=== PATIENT | male | born 1990 | race Hispanic/Latino ===

== ENCOUNTER 2020-04-15 11:02 | Emergency (ER) | payer SELFPAY ==
[2020-04-15 11:55] LABS: Absolute Lymphocytes (CBC) 0.4 K/uL (0.7-4.9); Basophils % 0.9 % (0-1.3); Hematocrit 40.4 % (39.6-49.0); Lymphocytes % 8.1 % (15.3-44.8); MPV 8.8 fL (7.6-11.3); RBC Red Blood Cell Count 4.71 M/uL (4.33-5.43)
[2020-04-15] MEDS ORDERED: FAMOTIDINE 20 MG/2 ML VIAL IV ONE (12:03)
[2020-04-15] MEDS ORDERED: NA CHLORIDE 0.9% 1,000 ML ONE (12:03)
[2020-04-15 12:23] LABS: ALT/SGPT 47 U/L (12-78); AST/SGOT 43 U/L (15-37); Albumin 4.2 g/dL (3.4-5.0); Alkaline Phosphatase 147 U/L (45-117); BUN Blood Urea Nitrogen 10 mg/dL (7-18); Bicarbonate 27 mmol/L (21-32); Bilirubin Direct 0.4 mg/dL (0-0.2); Bilirubin Total 1.7 mg/dL (0.2-1.0); Glucose Level 94 mg/dL (74-106); Lipase 117 U/L (73-393); Potassium 4.1 mmol/L (3.5-5.1); Protein, Total 7.8 g/dL (6.4-8.2); Sodium Level 140 mmol/L (136-145); Troponin (Emerg Dept Use Only) < 0.02 ng/mL (0.0-0.045)
--- NOTE | 2020-04-15 12:34 | RAD REPORT ---
EXAM DESCRIPTION: Donna Single View04/15/2020 12:22 pm CLINICAL HISTORY: Chest pain COMPARISON: none FINDINGS: The lungs appear clear of acute infiltrate. The heart is normal size IMPRESSION: No acute abnormalities displayed
[2020-04-15] MEDS ORDERED: DIAZEPAM 10 MG/2 ML INJ SYRINGE ONE (13:09)
--- NOTE | 2020-04-15 16:39 | EDPHYS ---
Physician Documentation [facility] Name: Messi Pham Age: 30 yrs Sex: Male : 1990 Arrival Date: 04/15/2020 Time: 11:05 Bed 19 Private MD: ED Physician Ervin White HPI: 04/15 11:27 This 30 yrs old Male presents to ER via Ambulatory with complaints of Chest snw Pain, Neck Pain, >24Hrs Old. 11:27 Onset: The symptoms/episode began/occurred gradually, 4 day(s) ago, and became snw persistent. Associated signs and symptoms: Pertinent positives: chest pain, fever. The patient has not experienced similar symptoms in the past. The patient has not recently seen a physician. worked out Monday. Historical: - Allergies: 11:10 No Known Allergies; aa5 - Home Meds: 11:10 None [Active]; aa5 - PMHx: 11:10 None; aa5 - PSHx: 11:10 None; aa5 - Immunization history:: Adult Immunizations unknown. - Social history:: Smoking status: Patient reports the use of cigarette tobacco products, denies chronic smoking, but will smoke occasionally. ROS: 11:26 Eyes: Negative for injury, pain, redness, and discharge, ENT: Negative for injury, snw pain, and discharge, Cardiovascular: Negative for chest pain, palpitations, and edema. 11:26 Respiratory: Negative for shortness of breath, cough, wheezing, and pleuritic chest pain, Abdomen/GI: Negative for abdominal pain, nausea, vomiting, diarrhea, and constipation, Back: Negative for injury and pain, : Negative for injury, bleeding, discharge, and swelling, MS/Extremity: Negative for injury and deformity, Skin: Negative for injury, rash, and discoloration, Neuro: Negative for headache, weakness, numbness, tingling, and seizure, Psych: Negative for depression, anxiety, suicide ideation, homicidal ideation, and hallucinations. 11:26 Constitutional: Positive for body aches, fever, malaise. 11:26 Cardiovascular: Positive for chest pain, of the left clavicle and anterior aspect of left upper chest and right lateral neck. Exam: 11:26 Constitutional: This is a well developed, well nourished patient who is awake, alert, snw and in no acute distress. Head/Face: Normocephalic, atraumatic. Eyes: Pupils equal round and reactive to light, extra-ocular motions intact. Lids and lashes normal. Conjunctiva and sclera are non-icteric and not injected. Cornea within normal limits. Periorbital areas with no swelling, redness, or edema. ENT: Nares patent. No nasal discharge, no septal abnormalities noted. Tympanic membranes are normal and external auditory canals are clear. Oropharynx with no redness, swelling, or masses, exudates, or evidence of obstruction, uvula midline. Mucous membranes moist. Neck: Trachea midline, no thyromegaly or masses palpated, and no cervical lymphadenopathy. Supple, full range of motion without nuchal rigidity, or vertebral point tenderness. No Meningismus. Chest/axilla: Normal chest wall appearance and motion. Nontender with no deformity. No lesions are appreciated. Cardiovascular: Regular rate and rhythm with a normal S1 and S2. No gallops, murmurs, or rubs. Normal PMI, no JVD. No pulse deficits. Respiratory: Lungs have equal breath sounds bilaterally, clear to auscultation and percussion. No rales, rhonchi or wheezes noted. No increased work of breathing, no retractions or nasal flaring. Abdomen/GI: Soft, non-tender, with normal bowel sounds. No distension or tympany. No guarding or rebound. No evidence of tenderness throughout. Back: No spinal tenderness. No costovertebral tenderness. Full range of motion. Skin: Warm, dry with normal turgor. Normal color with no rashes, no lesions, and no evidence of cellulitis. MS/ Extremity: Pulses equal, no cyanosis. Neurovascular intact. Full, normal range of motion. Neuro: Awake and alert, GCS 15, oriented to person, place, time, and situation. Cranial nerves II-XII grossly intact. Motor strength 5/5 in all extremities. Sensory grossly intact. Cerebellar exam normal. Normal gait. Psych: Awake, alert, with orientation to person, place and time. Behavior, mood, and affect are within normal limits. Vital Signs: 11:11 BP 138 / 83; Pulse 98; Resp 18 S; Temp 99.5(O); Pulse Ox 100% on R/A; Weight 72.57 kg aa5 (R); Height 5 ft. 6 in. (167.64 cm) (R); Pain 7/10; 11:11 Body Mass Index 25.82 (72.57 kg, 167.64 cm) aa5 MDM: 11:15 Patient medically screened. snw 16:39 Data reviewed: vital signs, nurses notes. Data interpreted: Pulse oximetry: on room air snw is 100 %. Interpretation: normal. Counseling: I had a detailed discussion with the patient and/or guardian regarding: the historical points, exam findings, and any diagnostic results supporting the discharge/admit diagnosis, the presence of at least one elevated blood pressure reading (>120/80) during this emergency department visit, lab results, radiology results, the need for outpatient follow up, to return to the emergency department if symptoms worsen or persist or if there are any questions or concerns that arise at home. Special discussion: Based on the patient's history, exam, and Dx evaluation, there is no indication for emergent intervention or inpatient Tx. It is understood by the patient/guardian that if the Sx's persist or worsen they need to return immediately for re-evaluation. I have referred the patient to see his PCP for further evaluation of high blood pressure. Based on the history and exam findings, there is no indication for further emergent testing or inpatient evaluation. 04/15 11:15 Order name: CBC with Diff; Complete Time: 12:20 snw 04/15 11:15 Order name: LFT's; Complete Time: 12:48 snw 04/15 11:15 Order name: Lipase; Complete Time: 12:48 snw 04/15 11:15 Order name: Troponin (emerg Dept Use Only); Complete Time: 12:48 snw 04/15 11:15 Order name: Chem 7; Complete Time: 12:48 snw 04/15 11:26 Order name: Flu; Complete Time: 13:43 snw 04/15 11:16 Order name: Chest Single View XRAY; Complete Time: 12:48 snw 04/15 11:26 Order name: Strep; Complete Time: 13:43 snw 04/15 11:26 Order name: COVID-19 snw 04/15 11:28 Order name: CPK snw 04/15 11:29 Order name: Creatine Phosphokinase; Complete Time: 12:20 EDMS 04/15 13:38 Order name: Throat Culture EDMS 04/15 14:18 Order name: Troponin (emerg Dept Use Only); Complete Time: 16:17 snw 04/15 11:15 Order name: EKG; Complete Time: 11:15 snw 04/15 11:15 Order name: EKG - Nurse/Tech; Complete Time: 11:48 snw 04/15 14:18 Order name: EKG; Complete Time: 14:18 snw EC:40 Rate is 81 beats/min. Rhythm is regular. QRS [place] is Normal. ID interval is normal. QRS snw interval is normal. T waves are Normal. Clinical impression: Normal ECG. 16:39 Rate is 96 beats/min. Rhythm is regular. QRS [place] is Normal. ID interval is normal. QRS snw interval is normal. QT interval is normal. No Q waves. T waves are Normal. No ST changes noted. Clinical impression: Normal ECG. Administered Medications: 11:54 Drug: Pepcid 20 mg Route: IVP; Site: right antecubital; iw 11:54 Drug: NS 0.9% 1000 ml Route: IV; Rate: 125 ml/hr; Site: right antecubital; iw 12:40 Drug: Valium 2 mg Route: IVP; Site: right antecubital; iw Disposition: 17:31 Co-signature as Attending Physician, Ervin White MD I agree with the assessment and kdr plan of care. Disposition: 04/15/20 16:38 Discharged to Home. Impression: Chest pain, unspecified, Muscle spasm. - Condition is Stable. - Discharge Instructions: Nonspecific Chest Pain, Hypertension, How to Take Your Blood Pressure, [id number], Aspirin and Your Heart, Form - Blood Pressure Record Sheet. - Prescriptions for orphenadrine citrate 100 mg Oral Tablet Sustained Release - take 1 tablet by ORAL route 2 times per day As needed; 20 tablet. - Work release form, Medication Reconciliation Form, Thank You Letter, Antibiotic Education, Prescription Opioid Use form. - Follow up: Emergency Department; When: As needed; Reason: Worsening of condition. Follow up: Private Physician; When: 2 - 3 days; Reason: Recheck today's complaints, Continuance of care, Re-evaluation by your physician. Signatures: Dispatcher [employer] [facility] Ervin White MD MD kdr Waters, Shelly, YARN INSPECTOR-C YARN INSPECTOR-Csnw Sheila Peña, RN RN iw Efra Miller em1 Sarah Mcfarlane, RN RN aa5 Corrections: (The following items were deleted from the chart) 17:28 16:38 04/15/2020 16:38 Discharged to Home. Impression: Chest pain, unspecified; Muscle em1 spasm. Condition is Stable. Forms are Medication Reconciliation Form, Thank You Letter, Antibiotic Education, Prescription Opioid Use. Follow up: Emergency Department; When: As needed; Reason: Worsening of condition. Follow up: Private Physician; When: 2 - 3 days; Reason: Recheck today's complaints, Continuance of care, Re-evaluation by your physician. snw
--- NOTE | 2020-04-15 16:39 | ER ---
Nurse's Notes [facility] Name: Messi Pham Age: 30 yrs Sex: Male : 1990 Arrival Date: 04/15/2020 Time: 11:05 Bed 19 Private MD: Diagnosis: Chest pain, unspecified;Muscle spasm Presentation: 04/15 11:08 Chief complaint: Patient states: pain to right side of neck and left sided chest pain x aa5 3-4 days ago. Pt also reports "sweating at night like a fever".Pt denies cough, denies nausea, denies vomiting, denies diarrhea. Pt denies sore throat. Coronavirus screen: At this time, the client does not indicate any symptoms associated with coronavirus-19. Ebola Screen: Patient negative for fever greater than or equal to 101.5 degrees Fahrenheit, and additional compatible Ebola Virus Disease symptoms. Initial Sepsis Screen: Does the patient meet any 2 criteria? No. Patient's initial sepsis screen is negative. Does the patient have a suspected source of infection? No. Patient's initial sepsis screen is negative. Risk Assessment: Do you want to hurt yourself or someone else? Patient reports no desire to harm self or others. Onset of symptoms was March 2020. 11:08 Acuity: ISRA 3 aa5 11:08 Method Of Arrival: Ambulatory aa5 Historical: - Allergies: 11:10 No Known Allergies; aa5 - Home Meds: 11:10 None [Active]; aa5 - PMHx: 11:10 None; aa5 - PSHx: 11:10 None; aa5 - Immunization history:: Adult Immunizations unknown. - Social history:: Smoking status: Patient reports the use of cigarette tobacco products, denies chronic smoking, but will smoke occasionally. Screenin:56 Abuse screen: Denies threats or abuse. Denies injuries from another. Nutritional iw screening: No deficits noted. Tuberculosis screening: No symptoms or risk factors identified. Fall Risk None identified. Assessment: 11:55 General: Appears in no apparent distress. Behavior is calm, cooperative. Pain: iw Complains of pain in anterior aspect of left upper chest and left breast Pain began 2-3 days ago. Is continuous. Neuro: Level of Consciousness is awake, alert, obeys commands, Oriented to person, place, time, situation, Practical Nurse are Moves all extremities. Full function. Cardiovascular: Capillary refill < 3 seconds in bilateral fingers Patient's skin is warm and dry. Respiratory: Respiratory effort is even, unlabored, Respiratory pattern is regular. GI: Abdomen is non-distended. Derm: Skin is intact, is healthy with good turgor. Musculoskeletal: Range of motion: intact in all extremities. 13:14 Reassessment: Patient appears in no apparent distress at this time. Patient and/or iw family updated on plan of care and expected duration. Pain level reassessed. Patient is alert, oriented x 3, equal unlabored respirations, skin warm/dry/pink. Vital Signs: 11:11 BP 138 / 83; Pulse 98; Resp 18 S; Temp 99.5(O); Pulse Ox 100% on R/A; Weight 72.57 kg aa5 (R); Height 5 ft. 6 in. (167.64 cm) (R); Pain 7/10; 11:11 Body Mass Index 25.82 (72.57 kg, 167.64 cm) aa5 ED Course: 11:05 Patient arrived in ED. ag5 11:08 Arm band placed on. aa5 11:10 Triage completed. aa5 11:13 Malathi Kaur [facility]-C [facility]. snw 11:13 Ervin White MD is Attending Physician. snw 11:22 Sheila Peña, RN is Primary Nurse. iw 11:43 Inserted saline lock: 20 gauge in right antecubital area, using aseptic technique. ca1 Blood collected. Patient maintains SpO2 saturation greater than 95% on room air. 11:43 Initial lab(s) drawn, by me, sent to lab. COVID swab sent to lab. Flu and/or RSV swab ca1 sent to lab. Strep swab sent to lab. 11:48 COVID-19 Sent. ca1 11:48 Strep Sent. ca1 11:48 Flu Sent. ca1 12:00 Patient has correct armband on for positive identification. Pulse ox on. NIBP on. iw 12:22 Chest Single View XRAY In Process Unspecified. EDMS 17:27 No provider procedures requiring assistance completed. IV discontinued, intact, iw bleeding controlled, No redness/swelling at site. Pressure dressing applied. Administered Medications: 11:54 Drug: Pepcid 20 mg Route: IVP; Site: right antecubital; iw 11:54 Drug: NS 0.9% 1000 ml Route: IV; Rate: 125 ml/hr; Site: right antecubital; iw 12:40 Drug: Valium 2 mg Route: IVP; Site: right antecubital; iw Outcome: 16:38 Discharge ordered by . jana 17:27 Discharged to home ambulatory. iw 17:27 Condition: good 17:27 Discharge instructions given to patient, Instructed on discharge instructions, follow up and referral plans. medication usage, Demonstrated understanding of instructions, follow-up care, medications, Prescriptions given X 1. 17:28 Patient left the ED. em1 Addendum: 04/16/2020 17:37 Addendum: COVID-19 Result: Negative result given to RN to notify pt. Notified pt of i w negative COVID 19 swab results. Pt advised that even with a negative test result they should remain in isolation until symptom free for 3 days without medication. Pt also advised to return to the ED for worsening symptoms. Signatures: Dispatcher [employer] EDMS Malathi Kaur, VISITOR SERVICES REPRESENTATIVE-C VISITOR SERVICES REPRESENTATIVE-Csnw Sheila Peña, RN Efra Callahan em1 Sarah Mcfarlane RN JEOVANY aa5 Amanda Romero RN Rusty Horn5
[2020-04-15 17:34] VITALS: BP 138/83; TEMP 99.5; O2SAT 100
[2020-04-15] MEDS ORDERED: ASPIRIN 81 MG CHEWABLE TABLET ONE (17:34)
[2020-04-15] MEDS ORDERED: ACETAMINOPHEN 500 MG TAB ONE (17:34)
--- NOTE | 2020-04-17 16:14 | EKG ---
Test Date: 2020-04-15 Test Time: 11:34:28 Associate Veterinarian: JANICE MEASUREMENT RESULTS: Intervals: Rate: 81 [place]: 124 QRSD: 70 QT: 340 QTc: 394 [place]: P: 60 [place]: 124 QRS: 67 T: 31 INTERPRETIVE STATEMENTS: Normal sinus rhythm Normal ECG No previous ECG available for comparison Electronically Signed On 04-17-20 16:09:59 CHOCOLATE DIPPER by Balbir Mitchell
--- NOTE | 2020-04-17 16:14 | EKG ---
Test Date: 2020-04-15 Test Time: 16:28:18 Licensed Physical Therapist: JANICE MEASUREMENT RESULTS: Intervals: Rate: 96 [place]: 120 QRSD: 76 QT: 316 QTc: 399 [place]: P: 57 [place]: 120 QRS: 58 T: 26 INTERPRETIVE STATEMENTS: Normal sinus rhythm Normal ECG Compared to ECG 04/15/2020 11:34:28 No significant changes Electronically Signed On 04-17-20 16:09:51 FULL STACK SOFTWARE DEVELOPER by Balbir Mitchell
== END 2020-04-15 17:28 | disposition home or self-care (01) ==
LOC: ER 11:02
DX: M62.838 Other muscle spasm (principal); Z20.828 Contact with and (suspected) exposure to other viral communicable diseases; F17.210 Nicotine dependence, cigarettes, uncomplicated
CPT/HCPCS: 36415; 71045; 80048; 80076; 82550; 83690; 84484; 85025; 87070; 87081; 87804; 93005; 96374; 96375; 99284; J3360; J7030; U0002

== ENCOUNTER 2020-04-17 14:24 | Emergency (ER) | payer SELFPAY ==
[2020-04-17 15:45] LABS: Absolute Lymphocytes (CBC) 0.4 K/uL (0.7-4.9); Basophils % 1.4 % (0-1.3); Hematocrit 40.9 % (39.6-49.0); Lymphocytes % 13.9 % (15.3-44.8); MPV 9.4 fL (7.6-11.3); RBC Red Blood Cell Count 4.77 M/uL (4.33-5.43)
[2020-04-17 15:56] LABS: Albumin 3.9 g/dL (3.4-5.0); Bilirubin Direct 0.4 mg/dL (0-0.2); Bilirubin Total 1.6 mg/dL (0.2-1.0); Potassium 3.7 mmol/L (3.5-5.1); Protein, Total 7.7 g/dL (6.4-8.2)
--- NOTE | 2020-04-17 16:15 | RAD REPORT ---
EXAM DESCRIPTION: CT - Stone Protocol - 04/17/2020 4:04 pm CLINICAL HISTORY: ABD PAIN COMPARISON: <Comparisons> TECHNIQUE: Axial 5 mm thick images were obtained without oral or IV contrast. The [id number] span s the entirety of the system including uppermost abdomen and lung bases. All CT scans are performed using dose optimization technique as appropriate and may include automated exposure control or mA/KV adjustment according to patient size. FINDINGS: No hydronephrosis is present and no obstructing ureteral calculi. No suspicious renal mass es. Isodense masses and pyelonephritis are not excluded on a stone protocol CT scan. No significant a drenal finding. Tightly contracted urinary bladder shows no suspicious finding. No prostate gland or seminal vesicle abnormality seen. The liver, spleen and pancreas show no focal abnormalities on noncontrast imaging. Liver and spleen a re upper normal in size. There is fullness of the pancreatic tail. The tissue is homogeneous with no clearly defined mass on a noncontrast examination. No gallbladder or biliary tree abnormality identif ied. Gallstones can be occult on CT imaging. No acute bowel finding identifiable. Patient does have multiple mesenteric lymph nodes in the central abdomen. No direct or indirect evidence for appendicitis. No periappendiceal inflammatory stranding or right lower quadrant focal findings. Small amount of fluid is collecting in the dependent portion of the pelvis. Trace amount of fluid adjacent to the posterior capsule of the spleen. No hernia, mass or bulky lymphadenopathy noted. No free air, pneumatosis or focal inflammatory strand ing. No significant bony abnormality. IMPRESSION: Noncontrast CT abdomen and pelvis imaging shows no free air, acute appendicitis or other surgically emergent finding. Multiple mesenteric lymph nodes are seen in the peritoneal cavity with trace amounts of free fluid al so present. Nonspecific enteritis or mesenteric adenitis would be most likely. Fluid is presumed to b e reactive. No focal abnormality of the solid abdominal viscera or bowel seen. Isodense masses and pyelonephritis are not excluded on stone protocol technique.
[2020-04-17] MEDS ORDERED: NA CHLORIDE 0.9% 1,000 ML ONE (16:21)
[2020-04-17 17:03] LABS: Urine Bacteria <20 /HPF (NONE SEEN); Urine RBC <5 /HPF (NONE SEEN)
--- NOTE | 2020-04-17 17:05 | ER ---
Nurse's Notes [facility] Name: Messi Pham Age: 30 yrs Sex: Male : 1990 Arrival Date: 04/17/2020 Time: 14:26 Bed 8 Private MD: Diagnosis: Abnormal results of liver function studies;Unspecified abdominal pain Presentation: 04/17 14:35 Chief complaint: Patient states: LUQ pain x 3 days. Today, red colored urine in the ca1 morning. 2nd urine was dark. LUQ pain worse when breathing in. Tested negative for Covid 04/15/2020. Coronavirus screen: Client denies travel out of the [place] in the last 14 days. At this time, the client does not indicate any symptoms associated with coronavirus-19. The client reports previous COVID testing was negative. Date of collection: April 15, 2020. Ebola Screen: Patient negative for fever greater than or equal to 101.5 degrees Fahrenheit, and additional compatible Ebola Virus Disease symptoms Patient denies exposure to infectious person. Patient denies travel to an Ebola-affected area in the 21 days before illness onset. No symptoms or risks identified at this time. Initial Sepsis Screen: Does the patient meet any 2 criteria? No. Patient's initial sepsis screen is negative. Does the patient have a suspected source of infection? No. Patient's initial sepsis screen is negative. Risk Assessment: Do you want to hurt yourself or someone else? Patient reports no desire to harm self or others. Onset of symptoms was April 17, 2020. 14:35 Method Of Arrival: Ambulatory ca1 14:35 Acuity: ISRA 3 ca1 Historical: - Allergies: 14:38 No Known Allergies; ca1 - Home Meds: 14:38 None [Active]; ca1 - PMHx: 14:38 None; ca1 - PSHx: 14:38 None; ca1 - Immunization history:: Adult Immunizations up to date, Flu vaccine is not up to date. - Social history:: Smoking status: Patient denies any tobacco usage or history of. Screenin:11 Abuse screen: Denies threats or abuse. Denies injuries from another. Nutritional ph screening: No deficits noted. Tuberculosis screening: No symptoms or risk factors identified. Fall Risk None identified. Assessment: 16:11 General: Appears in no apparent distress. comfortable, slender, well groomed, Behavior ph is calm, cooperative, appropriate for age, Denies fever, feeling ill. Pain: Complains of pain in left lower quadrant. Neuro: Level of Consciousness is awake, alert, obeys commands, Oriented to person, place, time, situation. Cardiovascular: Capillary refill < 3 seconds in bilateral fingers Patient's skin is warm and dry. Respiratory: Airway is patent Respiratory effort is even, unlabored. GI: Abdomen is flat, non-distended, Reports lower abdominal pain, upper abdominal pain. : Urine is dark colored urine. : Reports pain in right flank(s), lower quadrant(s) difficulty urinating. Derm: Skin is intact, is healthy with good turgor, Skin is pink, warm \\T\\ dry. Musculoskeletal: Circulation, motion, and sensation intact. Range of motion: intact in all extremities. 17:15 Reassessment: Patient appears in no apparent distress at this time. Patient and/or ph family updated on plan of care and expected duration. Pain level reassessed. Patient is alert, oriented x 3, equal unlabored respirations, skin warm/dry/pink. Pt states, " I feel like I am running a fever." Oral temp 101.6, ERP notified of vitals, ordered Motrin and a mono test, d/c pending results. Vital Signs: 14:35 BP 117 / 76; Pulse 118; Resp 16 S; Temp 97(TE); Pulse Ox 99% on R/A; Weight 72.57 kg ca1 (R); Height 5 ft. 6 in. (167.64 cm) (R); Pain 9/10; 16:15 BP 119 / 73; Pulse 102; Resp 18; Pulse Ox 99% on R/A; ph 16:47 BP 127 / 80; Pulse 96; Resp 17; Temp 101.6(O); Pulse Ox 100% on R/A; kj1 18:35 BP 118 / 78; Pulse 98; Resp 18; Temp 101.8(O); Pulse Ox 100% on R/A; ph 14:35 Body Mass Index 25.82 (72.57 kg, 167.64 cm) ca1 ED Course: 14:26 Patient arrived in ED. rg4 14:37 Triage completed. ca1 14:38 Arm band placed on right wrist. ca1 15:09 Adali Villanueva FNP-C is [facility]. kb 15:09 Mingo Wright MD is Attending Physician. kb 15:09 Yusra Shore RN is Primary Nurse. ph 16:05 CT Stone Protocol In Process Unspecified. EDMS 16:23 Patient has correct armband on for positive identification. Bed in low position. Call ph light in reach. Side rails up X 1. Pulse ox on. NIBP on. Door closed. Noise minimized. Warm blanket given. 18:43 No provider procedures requiring assistance completed. IV discontinued, intact, ph bleeding controlled, No redness/swelling at site. Pressure dressing applied. Administered Medications: 16:10 Drug: NS 0.9% 1000 ml Route: IV; Rate: 1000 ml; Site: left antecubital; ph 17:43 Follow up: Response: No adverse reaction; IV Status: Completed infusion; IV Intake: ph 1000ml 17:16 CANCELLED (Physician Discretion): Tylenol 1000 mg PO once kb 17:40 Drug: Ibuprofen 600 mg Route: PO; ph 19:04 Follow up: Response: No adverse reaction; Temperature is unchanged ph 19:05 Drug: Tylenol 1000 mg Route: PO; ph 19:05 Follow up: Response: No adverse reaction; Medication administered at discharge. ph Intake: 17:43 IV: 1000ml; Total: 1000ml. ph Outcome: 17:05 Discharge ordered by . kb 19:05 Discharged to home ambulatory. ph 19:05 Condition: good 19:05 Discharge instructions given to patient, Instructed on discharge instructions, follow up and referral plans. Demonstrated understanding of instructions, follow-up care. 19:11 Patient left the ED. ph Signatures: Dispatcher [employer] EDCO Adali Villanueva FNP-C REHAB AIDE-Ckb Yusra Shore RN RN ph Erica Guo rg4 Amanda Romero RN RN [facility] Chandni Villanueva kj1 Corrections: (The following items were deleted from the chart) 17:46 17:15 Reassessment: Patient appears in no apparent distress at this time. Patient ph and/or family updated on plan of care and expected duration. Pain level reassessed. Patient is alert, oriented x 3, equal unlabored respirations, skin warm/dry/pink. Pt states, " I feel like I am running a fever." Oral temp 101.6, ERP notified of vitals ph
--- NOTE | 2020-04-17 17:05 | EDPHYS ---
Physician Documentation [facility] Name: Messi Pham Age: 30 yrs Sex: Male : 1990 Arrival Date: 04/17/2020 Time: 14:26 Bed 8 Private MD: ED Physician Mingo Wright HPI: 04/17 17:31 This 30 yrs old Male presents to ER via Ambulatory with complaints of kb Abdominal Pain, Urinary Problem. 17:31 The patient presents with abdominal pain in the left upper quadrant, in the left lower kb quadrant. Onset: The symptoms/episode began/occurred 3 day(s) ago. The symptoms do not radiate. Associated signs and symptoms: Pertinent positives: dark urine, frequency. The symptoms are described as constant. Modifying factors: The symptoms are alleviated by nothing, the symptoms are aggravated by nothing. Severity of pain: At its worst the pain was moderate in the emergency department the pain is unchanged. The patient has not experienced similar symptoms in the past. The patient has been recently seen at the [facility] Emergency Department, this week, for similar complaints labs were performed, X-rays were performed. Historical: - Allergies: 14:38 No Known Allergies; ca1 - Home Meds: 14:38 None [Active]; ca1 - PMHx: 14:38 None; ca1 - PSHx: 14:38 None; ca1 - Immunization history:: Adult Immunizations up to date, Flu vaccine is not up to date. - Social history:: Smoking status: Patient denies any tobacco usage or history of. ROS: 17:30 Cardiovascular: Negative for chest pain, palpitations, and edema, Respiratory: Negative kb for shortness of breath, cough, wheezing, and pleuritic chest pain, Back: Negative for injury and pain, MS/Extremity: Negative for injury and deformity, Skin: Negative for injury, rash, and discoloration, Neuro: Negative for headache, weakness, numbness, tingling, and seizure. 17:30 Constitutional: Positive for body aches, chills, fatigue, fever, malaise. 17:30 Abdomen/GI: Positive for abdominal pain. 17:30 : Positive for urinary frequency, small amounts, dark urine. Exam: 17:31 Constitutional: This is a well developed, well nourished patient who is awake, alert, kb and in no acute distress. Head/Face: Normocephalic, atraumatic. Chest/axilla: Normal chest wall appearance and motion. Nontender with no deformity. No lesions are appreciated. Cardiovascular: Regular rate and rhythm with a normal S1 and S2. No gallops, murmurs, or rubs. Normal PMI, no JVD. No pulse deficits. Respiratory: Lungs have equal breath sounds bilaterally, clear to auscultation and percussion. No rales, rhonchi or wheezes noted. No increased work of breathing, no retractions or nasal flaring. Skin: Warm, dry with normal turgor. Normal color with no rashes, no lesions, and no evidence of cellulitis. MS/ Extremity: Pulses equal, no cyanosis. Neurovascular intact. Full, normal range of motion. Neuro: Awake and alert, GCS 15, oriented to person, place, time, and situation. Cranial nerves II-XII grossly intact. Motor strength 5/5 in all extremities. Sensory grossly intact. Cerebellar exam normal. Normal gait. 17:31 Abdomen/GI: Inspection: abdomen appears normal, Bowel sounds: normal, in all quadrants, Palpation: soft, in all quadrants, mild abdominal tenderness, in the left upper quadrant and left lower quadrant. Vital Signs: 14:35 BP 117 / 76; Pulse 118; Resp 16 S; Temp 97(TE); Pulse Ox 99% on R/A; Weight 72.57 kg ca1 (R); Height 5 ft. 6 in. (167.64 cm) (R); Pain 9/10; 16:15 BP 119 / 73; Pulse 102; Resp 18; Pulse Ox 99% on R/A; ph 16:47 BP 127 / 80; Pulse 96; Resp 17; Temp 101.6(O); Pulse Ox 100% on R/A; kj1 18:35 BP 118 / 78; Pulse 98; Resp 18; Temp 101.8(O); Pulse Ox 100% on R/A; ph 14:35 Body Mass Index 25.82 (72.57 kg, 167.64 cm) ca1 MDM: 15:09 Patient medically screened. kb 17:28 Data reviewed: vital signs, nurses notes. Data interpreted: Pulse oximetry: on room air kb is 100 %. Interpretation: normal. Counseling: I had a detailed discussion with the patient and/or guardian regarding: the historical points, exam findings, and any diagnostic results supporting the discharge/admit diagnosis, lab results, radiology results, the need for outpatient follow up, a family practitioner, to return to the emergency department if symptoms worsen or persist or if there are any questions or concerns that arise at home. 04/17 15:09 Order name: Basic Metabolic Panel; Complete Time: 15:59 kb 04/17 15:09 Order name: CBC with Diff; Complete Time: 15:59 kb 04/17 15:09 Order name: Hepatic Function; Complete Time: 15:59 kb 04/17 15:09 Order name: Lipase; Complete Time: 15:59 kb 04/17 15:09 Order name: CPK; Complete Time: 15:59 kb 04/17 15:34 Order name: Urine Dipstick--Ancillary (enter results) eb 04/17 15:39 Order name: CT Stone Protocol; Complete Time: 16:20 kb 04/17 16:21 Order name: Urine Microscopic Only; Complete Time: 17:04 kb 04/17 17:16 Order name: Duchesne Screen Profile; Complete Time: 18:35 kb 04/17 15:09 Order name: IV Saline Lock; Complete Time: 15:37 kb 04/17 15:09 Order name: Labs collected and sent; Complete Time: 15:37 kb 04/17 15:09 Order name: Urine Dipstick-Ancillary (obtain specimen); Complete Time: 15:37 kb Administered Medications: 16:10 Drug: NS 0.9% 1000 ml Route: IV; Rate: 1000 ml; Site: left antecubital; ph 17:43 Follow up: Response: No adverse reaction; IV Status: Completed infusion; IV Intake: ph 1000ml 17:16 CANCELLED (Physician Discretion): Tylenol 1000 mg PO once kb 17:40 Drug: Ibuprofen 600 mg Route: PO; ph 19:04 Follow up: Response: No adverse reaction; Temperature is unchanged ph 19:05 Drug: Tylenol 1000 mg Route: PO; ph 19:05 Follow up: Response: No adverse reaction; Medication administered at discharge. ph Disposition: 04/17/20 17:05 Discharged to Home. Impression: Abnormal results of liver function studies, Unspecified abdominal pain. - Condition is Stable. - Discharge Instructions: Abdominal Pain, Adult, [id number]. - Medication Reconciliation Form, Thank You Letter, Antibiotic Education, Prescription Opioid Use form. - Follow up: Emergency Department; When: As needed; Reason: Worsening of condition. Follow up: Private Physician; When: 2 - 3 days; Reason: Recheck today's complaints, Continuance of care, Re-evaluation by your physician. Addendum: 04/19/2020 07:34 Co-signature as Attending Physician, Mingo Wright MD I agree with the assessment and t w4 plan of care. Signatures: Dispatcher [employer] [facility] Adali Villanueva, WEIR FISHERMAN-C WEIR FISHERMAN-Yusra Vann RN RN Mingo Wright MD MD tw4 Amanda Romero RN RN ca1 Corrections: (The following items were deleted from the chart) 04/17 17:05 17:05 04/17/2020 17:05 Discharged to Home. Impression: Abnormal results of liver kb function studies. Condition is Stable. Forms are Medication Reconciliation Form, Thank You Letter, Antibiotic Education, Prescription Opioid Use. Follow up: Emergency Department; When: As needed; Reason: Worsening of condition. Follow up: Private Physician; When: 2 - 3 days; Reason: Recheck today's complaints, Continuance of care, Re-evaluation by your physician. kb 17:16 17:07 Tylenol 1000 mg PO once ordered. kb kb 17:20 17:07 Chest Single View+RAD.RAD.BRZ ordered. [facility] 19:11 17:05 04/17/2020 17:05 Discharged to Home. Impression: Abnormal results of liver ph function studies; Unspecified abdominal pain. Condition is Stable. Forms are Medication Reconciliation Form, Thank You Letter, Antibiotic Education, Prescription Opioid Use. Follow up: Emergency Department; When: As needed; Reason: Worsening of condition. Follow up: Private Physician; When: 2 - 3 days; Reason: Recheck today's complaints, Continuance of care, Re-evaluation by your physician. kb
[2020-04-17] MEDS ORDERED: IBUPROFEN 400 MG TAB ONE (17:45)
[2020-04-17] MEDS ORDERED: IBUPROFEN 200 MG TAB PO ONE (17:45)
[2020-04-17] MEDS ORDERED: ACETAMINOPHEN 500 MG TAB ONE (19:09)
[2020-04-17 19:18] VITALS: O2SAT 100
[2020-04-17 19:19] VITALS: BP 118/78; TEMP 101.8
[2020-04-17 20:34] LABS: Urine Blood NEGATIVE (NEG); Urine Glucose NEGATIVE (NEG); Urine Protein 2+ (NEG); Urine pH 6.5 (5.0-7.0)
== END 2020-04-17 19:11 | disposition home or self-care (01) ==
LOC: ER 14:24
DX: R94.5 Abnormal results of liver function studies (principal)
CPT/HCPCS: 36415; 74176; 76377; 80048; 80076; 81003; 81015; 82550; 83690; 85025; 86308; 96360; 96361; 99284; J7030